=== PATIENT | female | born 1980 | race Caucasian/White ===

== ENCOUNTER 2018-07-12 06:46 | Emergency (ER) | payer OTHER ==
[2018-07-12 06:54] VITALS: RESP 18
--- NOTE | 2018-07-12 07:30 | ED ---
General Adult HPI - General Chief complaint: Nausea/Vomiting/Diarrhea Stated complaint: Vomiting and diarrhea Time Seen by Provider: 07/12/18 07:18 Source: patient, RN notes reviewed Mode of arrival: ambulatory Limitations: no limitations - History of Present Illness Initial comments: Patient is a pleasant 37-year-old female presenting to the emergency Department with complaints of nausea and vomiting and diarrhea. Onset was around 1:30 in the morning. Patient has had multiple episodes of both vomiting and diarrhea. Patient still feels nauseated. Patient has not vomited or had diarrhea for the past few hours and feels she may be dehydrated. Patient does have some discomfort of her epigastric region. No history of chronic similar problems. No fevers. - Related Data Home Medications Medication Instructions Recorded Confirmed Albuterol Inhaler [Ventolin Hfa 2 puff INHALATION RT-Q6H PRN 07/12/18 07/12/18 Inhaler] clonazePAM [KlonoPIN] 1 mg PO HS PRN 07/12/18 07/12/18 Previous Rx's Medication Instructions Recorded Ondansetron Odt [Zofran Odt] 4 mg PO Q8HR PRN #10 tab 07/12/18 Allergies Allergy/AdvReac Type Severity Reaction Status Date / Time bacitracin Allergy Rash/Hives Verified 07/12/18 07:40 [From Neosporin ([id number])] neomycin Allergy Rash/Hives Verified 07/12/18 07:40 [From Neosporin ([id number])] polymyxin B Allergy Rash/Hives Verified 07/12/18 07:40 [From Neosporin ([id number])] Review of Systems ROS Statement: Those systems with pertinent positive or pertinent negative responses have been documented in the HPI. ROS Other: All systems not noted in ROS Statement are negative. Constitutional: Denies: fever Eyes: Denies: eye pain ENT: Denies: ear pain Respiratory: Denies: cough Cardiovascular: Denies: chest pain Endocrine: Denies: fatigue Gastrointestinal: Reports: as per HPI, abdominal pain, nausea, vomiting, diarrhea Genitourinary: Denies: dysuria Musculoskeletal: Denies: back pain Skin: Denies: rash Neurological: Denies: weakness Past Medical History Past Medical History: Asthma Additional Past Medical History / Comment(s): Diverticulosis History of Any Multi-Drug Resistant Organisms: None Reported Past Surgical History: Section Past Psychological History: Depression Smoking Status: Current every day smoker Past Alcohol Use History: None Reported, Occasional Past Drug Use History: None Reported General Exam Limitations: no limitations General appearance: alert, in no apparent distress Head exam: Present: atraumatic Eye exam: Present: normal appearance, PERRL ENT exam: Present: normal oropharynx Neck exam: Present: normal inspection Respiratory exam: Present: normal lung sounds bilaterally Cardiovascular Exam: Present: regular rate, normal rhythm Expanded Peripheral pulses: 2+: Radial (R), Radial (L), Dorsalis Pedis (R), Dorsalis Pedis (L) GI/Abdominal exam: Present: soft. Absent: tenderness Extremities exam: Present: normal inspection. Absent: pedal edema, calf tenderness Neurological exam: Present: alert Psychiatric exam: Present: normal affect, normal mood Skin exam: Present: normal color Course Vital Signs 07/12/18 06:47 Temperature 98.2 F Pulse Rate 122 H Respiratory 18 Rate Blood Pressure 88/61 O2 Sat by Pulse 98 Oximetry Medical Decision Making - Medical Decision Making Patient reexamined and is feeling somewhat better. Abdomen soft and nontender. Patient updated on results and need for follow-up. - Lab Data Result diagrams: 07/12/18 07:05 07/12/18 07:05 Lab Results 07/12/18 07/12/18 Range/Units 07:05 07:05 WBC 13.5 H (3.8-10.6) k/uL RBC 5.07 (3.80-5.40) m/uL Hgb 15.9 (11.4-16.0) gm/dL Hct 48.1 H (34.0-46.0) % MCV 94.9 (80.0-100.0) fL MCH 31.3 (25.0-35.0) pg MCHC 33.0 (31.0-37.0) g/dL RDW 13.3 (11.5-15.5) % Plt Count 198 (150-450) k/uL Neutrophils % 90 % Lymphocytes % 5 % Monocytes % 3 % Eosinophils % 1 % Basophils % 0 % Neutrophils # 12.1 H (1.3-7.7) k/uL Lymphocytes # 0.7 L (1.0-4.8) k/uL Monocytes # 0.4 (0-1.0) k/uL Eosinophils # 0.1 (0-0.7) k/uL Basophils # 0.0 (0-0.2) k/uL Sodium 143 (137-145) mmol/L Potassium 4.2 (3.5-5.1) mmol/L Chloride 109 H (98-107) mmol/L Carbon Dioxide 26 (22-30) mmol/L Anion Gap 8 mmol/L BUN 18 H (7-17) mg/dL Creatinine 0.76 (0.52-1.04) mg/dL Est GFR (CKD-EPI)AfAm >90 (>60 ml/min/1.73 sqM) Est GFR (CKD-EPI)NonAf >90 (>60 ml/min/1.73 sqM) Glucose 113 H (74-99) mg/dL Calcium 9.5 (8.4-10.2) mg/dL Total Bilirubin 1.0 (0.2-1.3) mg/dL AST 16 (14-36) U/L ALT 23 (9-52) U/L Alkaline Phosphatase 31 L (38-126) U/L Total Protein 7.1 (6.3-8.2) g/dL Albumin 4.4 (3.5-5.0) g/dL Amylase 37 (30-110) U/L Lipase 47 (23-300) U/L - Radiology Data Radiology results: image reviewed (Abdominal x-ray reported as nonspecific abdomen. Correlate for gastroenteritis.) Disposition Clinical Impression: Vomiting, Diarrhea Disposition: HOME SELF-CARE Condition: Stable Instructions (If sedation given, give patient instructions): Acute Nausea and Vomiting (ED), Acute Diarrhea (ED) Additional Instructions: [id number] Imodium as needed. Return for abdominal pain, fevers, uncontrolled vomiting, worsening symptoms or other concerns. Prescriptions: Ondansetron Odt [Zofran Odt] 4 mg PO Q8HR PRN #10 tab PRN Reason: Nausea Is patient prescribed a controlled substance at d/c from ED?: No Referrals: Mónica Spann MD [STAFF PHYSICIAN] - 1-2 days Time of Disposition: 08:49
[2018-07-12 07:39] LABS: Basophils % (A) 0 %; Eosinophils # (A) 0.1 k/uL (0-0.7); Eosinophils % (A) 1 %; HCT 48.1 % (34.0-46.0); HGB 15.9 gm/dL (11.4-16.0); Lymphocytes # (A) 0.7 k/uL (1.0-4.8); Lymphocytes % (A) 5 %; MCH 31.3 pg (25.0-35.0); MCV 94.9 fL (80.0-100.0); Mean Platelet Volume 9.2; Monocytes # (A) 0.4 k/uL (0-1.0); Monocytes % (A) 3 %; Neutrophils # (A) 12.1 k/uL (1.3-7.7); Neutrophils % (A) 90 %; Platelet Count 198 k/uL (150-450); RBC 5.07 m/uL (3.80-5.40); RDW 13.3 % (11.5-15.5); WBC 13.5 k/uL (3.8-10.6)
[2018-07-12] MEDS: SODIUM CHLORIDE 0.9% 500 ML 500 ML IV STA (07:48)
[2018-07-12] MEDS: SODIUM CHLORIDE 0.9% 1,000 ML IV STA (07:48)
[2018-07-12] MEDS: ONDANSETRON 4 MG/2 ML VIAL IVP STA (07:48)
[2018-07-12 07:49] LABS: ALT 23 U/L (9-52); AST 16 U/L (14-36); Albumin 4.4 g/dL (3.5-5.0); Alkaline Phosphatase 31 U/L (38-126); Amylase 37 U/L (30-110); Anion Gap 8 mmol/L; Blood Urea Nitrogen 18 mg/dL (7-17); Calcium 9.5 mg/dL (8.4-10.2); Carbon Dioxide 26 mmol/L (22-30); Chloride 109 mmol/L (98-107); Glucose 113 mg/dL (74-99); Lipase 47 U/L (23-300); Potassium 4.2 mmol/L (3.5-5.1); Sodium 143 mmol/L (137-145); Total Protein 7.1 g/dL (6.3-8.2)
[2018-07-12] MEDS: FAMOTIDINE 20 MG/2 ML VIAL IV STA (07:50)
[2018-07-12] MEDS: DICYCLOMINE 10 MG/ML 2 ML AMP IM STA (07:52)
--- NOTE | 2018-07-12 08:18 | XR ---
EXAMINATION TYPE: XR KUB DATE OF EXAM: 07/12/2018 COMPARISON: None INDICATION: Pain vomiting TECHNIQUE: Single view abdomen upright view FINDINGS: Little bowel gas is present. There are some air-fluid levels which appear to be within the ascending colon region. Correlate for gastroenteritis Psoas margins are normal. No organomegaly is present. IMPRESSION: 1. Nonspecific abdomen. Correlate for gastroenteritis
[2018-07-12 08:56] VITALS: BP 108/70; PULSE 103; TEMP 98
== END 2018-07-12 09:01 | disposition home or self-care (01) ==
LOC: EC 06:46
DX: R11.2 Nausea with vomiting, unspecified (principal); R19.7 Diarrhea, unspecified; R19.8 Other specified symptoms and signs involving the digestive system and abdomen; J45.909 Unspecified asthma, uncomplicated; F17.200 Nicotine dependence, unspecified, uncomplicated; Z88.1 Allergy status to other antibiotic agents
CPT/HCPCS: 36415; 80053; 82150; 83690; 85025; 74018; 99284; 96374; 96375; 96361; 96372; J0500; J2405